=== PATIENT | male | born 1945 | race Caucasian/White ===

== ENCOUNTER 2016-11-02 04:35 | Emergency (ER) | payer MEDICARE, OTHER ==
--- NOTE | 2016-11-02 05:03 | RAD ---
EXAM: Single view chest. INDICATION: Chest pain. COMPARISON: Chest x-ray: None. FINDINGS: Cardiac silhouette: Mildly enlarged Michelle: Unremarkable. Lobar consolidation: None. Pleural effusion: None. Pneumothorax: None. Other: None. Bones: Unremarkable. Other: None. IMPRESSION: 1. No acute cardiopulmonary process. Electronically signed by: Silvio Otero MD 11/02/2016 5:02 AM CDT Workstation: [id number]
--- NOTE | 2016-11-02 05:04 | ED.PDOC ---
History of Present Illness - General Chief Complaint: Chest Pain/MO Time Seen by Provider: 11/02/16 04:40 Source: patient Exam Limitations: no limitations - History of Present Illness Initial Comments: Patient presents with pain in the right arm that radiates to his back for 40 hours. Sudden onset. Intermittent, often going away for hours. Got worse tonight. No previous episodes. Sharp and shooting in nature. No associated sx. No hx of AMI/CHF. Has htn but no other cardiac issues. Had bipedal edema once in his life after a long bus trip to [place]. Stopped smoking cigarrettes 40 years ago. Has NIDDM. No diaphoresis/N/V. No other complaints. Timing/Duration: other - 40 hours Severity: moderate Improving Factors: nothing Worsening Factors: nothing Associated Symptoms: denies symptoms Allergies/Adverse Reactions: Allergies NO KNOWN ALLERGY Allergy (Verified 11/02/16 04:43) Home Medications: Ambulatory Orders Celecoxib 200 mg PO DAILY 11/02/16 Exenatide [Byetta] 10 mcg SC BID 11/02/16 Ezetimibe-Simvastatin [Vytorin] 1 ea PO DAILY 11/02/16 Multivitamin Adults 1 each PO DAILY 11/02/16 [id number] Ethyl Esters [Lovaza 1 gm] 1 cap PO BID 11/02/16 Pioglitazone HCl-Metformin HCl [Pioglitazone HCl/Metformi 15-850 mg] 1 tab PO BID 11/02/16 Prazosin HCl 5 mg PO DAILY 11/02/16 Spironolactone & Hydrochloroth [Spironolactone/Hydrochlor 25-25 mg] 1 tab PO DAILY 11/02/16 Valsartan 160 mg PO DAILY 11/02/16 Review of Systems - Review of Systems Constitutional: States: no symptoms reported EENTM: States: no symptoms reported Respiratory: States: no symptoms reported Cardiology: States: see HPI Gastrointestinal/Abdominal: States: no symptoms reported Genitourinary: States: no symptoms reported Musculoskeletal: States: no symptoms reported Skin: States: no symptoms reported Neurological: States: no symptoms reported Endocrine: States: no symptoms reported Hematologic/Lymphatic: States: no symptoms reported Past Medical History (General) - Patient Medical History Hx Seizures: No Hx Stroke: No Hx Dementia: No Hx Asthma: No Hx of COPD: No Hx Cardiac Disorders: No Hx Congestive Heart Failure: No Hx Pacemaker: No Hx Hypertension: Yes Hx Thyroid Disease: No Hx Diabetes: Yes Hx Gastroesophageal Reflux: No Hx Renal Disease: No Hx Cancer: No Hx of HIV: No Hx Hepatitis C: No Hx MRSA: No Surgical History: tonsillectomy - Vaccination History Hx Tetanus, Diphtheria Vaccination: No Hx Influenza Vaccination: Yes Hx Pneumococcal Vaccination: Yes Immunizations Up to Date: No - Social History Hx Tobacco Use: No Hx Chewing Tobacco Use: No Hx Alcohol Use: Yes Hx Substance Use: No Hx Substance Use Treatment: No Hx Depression: No Feels Threatened In Home Enviroment: No Feels Threatened In a Relationship: No Hx Physical Abuse: No Hx Emotional Abuse: No Hx Suspected Abuse: No Family Medical History - Family History Mother Family History: Unknown Progress - Progress Progress: 11/02/16 06:18 EKG read by me showed NSR with no ST changes nor T wave inversions. No LBBB. Cardiac enzymes negative. GI cocktail eased the pain somewhat but did not resolve it completely. Patient has cardiology appointment in two days. I suggested that he also see his pcp about getting gallbladder studies. Laboratory Results - last 24 hr 11/02/16 11/02/16 11/02/16 04:55 04:55 04:55 WBC 5.2 RBC 3.58 L Hgb 11.3 L Hct 33.9 L MCV 94.6 H MCH 31.5 H MCHC 33.5 RDW 13.2 Plt Count 145 MPV 9.2 Absolute Neuts (auto) 3.20 Absolute Lymphs (auto) 1.20 Absolute Monos (auto) 0.60 Absolute Eos (auto) 0.20 Absolute Basos (auto) 0.00 Neutrophils % 61.6 Lymphocytes % 22.6 Monocytes % 11.7 H Eosinophils % 3.4 Basophils % 0.7 PT 12.9 H INR 1.140 PTT (SP) 33.6 Sodium 140 Potassium 4.3 Chloride 109 Carbon Dioxide 23 Anion Gap 12.3 BUN 22 H Creatinine 0.83 BUN/Creatinine Ratio 26.5 H Random Glucose 146 H Serum Osmolality 285.4 Calcium 9.2 Total Bilirubin 0.7 AST 21 ALT 14 Alkaline Phosphatase 62 Creatine Kinase CK-MB (CK-2) CK-MB (CK-2) % Troponin I B-Natriuretic Peptide Serum Total Protein 6.0 L Albumin 3.7 Globulin 2.3 Albumin/Globulin Ratio 1.6 11/02/16 04:55 WBC RBC Hgb Hct MCV MCH MCHC RDW Plt Count MPV Absolute Neuts (auto) Absolute Lymphs (auto) Absolute Monos (auto) Absolute Eos (auto) Absolute Basos (auto) Neutrophils % Lymphocytes % Monocytes % Eosinophils % Basophils % PT INR PTT (SP) Sodium Potassium Chloride Carbon Dioxide Anion Gap BUN Creatinine BUN/Creatinine Ratio Random Glucose Serum Osmolality Calcium Total Bilirubin AST ALT Alkaline Phosphatase Creatine Kinase 120 CK-MB (CK-2) 2.0 CK-MB (CK-2) % Not Reportable Troponin I < 0.02 B-Natriuretic Peptide 111.0 H Serum Total Protein Albumin Globulin Albumin/Globulin Ratio Departure - Departure Clinical Impression: Chest pain Disposition: Discharge to Home or Self Care Condition: Good Departure Forms: ED Discharge - Pt. Copy, Patient Portal Self Enrollment Diet: resume usual diet Activity: increase activity as tolerated Home Medications: Ambulatory Orders Celecoxib 200 mg PO DAILY 11/02/16 Exenatide [Byetta] 10 mcg SC BID 11/02/16 Ezetimibe-Simvastatin [Vytorin] 1 ea PO DAILY 11/02/16 Multivitamin Adults 1 each PO DAILY 11/02/16 [id number] Ethyl Esters [Lovaza 1 gm] 1 cap PO BID 11/02/16 Pioglitazone HCl-Metformin HCl [Pioglitazone HCl/Metformi 15-850 mg] 1 tab PO BID 11/02/16 Prazosin HCl 5 mg PO DAILY 11/02/16 Spironolactone & Hydrochloroth [Spironolactone/Hydrochlor 25-25 mg] 1 tab PO DAILY 11/02/16 Valsartan 160 mg PO DAILY 11/02/16 Additional Instructions: 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 See your primary care doctor about possible gall bladder studies. Return to the E.R. for new symptoms or worsening symptoms.
[2016-11-02] MEDS ORDERED: LIDOCAINE VIS-MYLANTA 30 ML UD PO ONE (05:32)
[2016-11-02 06:32] VITALS: BP 127/61; TEMP 97.2; O2SAT 94
== END 2016-11-02 06:32 | disposition home or self-care (01) ==
LOC: ER 04:35
DX: R07.9 Chest pain, unspecified (principal); I10 Essential (primary) hypertension; E11.9 Type 2 diabetes mellitus without complications; Z87.891 Personal history of nicotine dependence; Z79.899 Other long term (current) drug therapy